=== PATIENT | male | born 1955 | race Caucasian/White ===

== ENCOUNTER 2019-03-06 06:20 | Emergency (ER) | payer OTHER ==
[2019-03-06 07:07] VITALS: BMI 23.8
--- NOTE | 2019-03-06 07:49 | PDOC ---
Attending Attestation - Resident Resident Name: Caitlyn Hudson - ED Attending Attestation I have performed the following: I have examined & evaluated the patient, The case was reviewed & discussed with the resident, I agree w/resident's findings & plan, Exceptions are as noted - HPI HPI: 03/06/19 07:53 63y M hx of copd, nstemi, upper lobe lung ca, etoh, bph, dm, htn, gerd presens from [facility] unw[facility]ed [facility]. Pt doesnt recall the fall itself, and thinks he syncopized. pt complaining of pain to his L ches, pt denies any headache, cp, sob, back pain, pt states he was recently at [facility] for a heat problem. but dnies any cp currently. pt denies any cough, fever/chills, n/v, diarrhea, melena, bpr. Physicla Exam GENERAL: The patient is awake, alert, and fully oriented, Nontoxic - in no acute distress. HEAD: Normocephalic, atraumatic. EYES: extraocular movements intact, sclera anicteric, conjunctiva clear. ENT: Normal voice, Moist mucous membranes. NECK: Normal range of motion, supple LUNGS: Breath sounds equal, clear to auscultation bilaterally. No wheezes, no rhonchi, no rales. HEART: Regular rate and rhythm, normal S1 and S2 without murmur, rub or gallop. ABDOMEN: Soft, bruising in the left lower quadrant, nontender, No guarding, no rebound. No CVA tenderness BACK: No focal midline tenderness in the cervical, thoracic or lumbar spine EXTREMITIES: Normal range of motion, no edema. Moving all fours extremities spontaneously and symmetrically NEUROLOGICAL: No facial assymetry, Normal speech, PSYCH: Normal mood, normal affect. SKIN: Warm, Dry, normal turgor, 63-year-old multiple medical problems presenting status post fall possible syncope Will obtain CT head, C-spine will obtain basic labs, EKG, troponin, chest x-ray - Physicial Exam PE: 03/08/19 07:53 see abobve - Medical Decision Making 03/06/19 14:04 Patient's labs were reviewed they are at baseline Patient does have a small pleural effusion on the right lung, the patient denies any respiratory complaints, Suspect this may be due to his malignancy. CT of the spine and x-rays noted for likely malignant lesions We will have the patient follow-up with PMD Heart Score/ECG Review - ECG Impressions Comment:: 03/06/19 15:28 Twelve-lead EKG was performed and reviewed by me. There is normal sinus rhythm with a normal rate. Rate of 79 T wave inversion in the inferior and anterior leads
--- NOTE | 2019-03-06 08:20 | PDOC ---
History of Present Illness - General Chief Complaint: Injury Stated Complaint: FALL Time Seen by Provider: 03/06/19 07:29 History Source: Patient - History of Present Illness Initial Comments: 03/06/19 08:14 63 yo M PMH of R Lung ca ( actively chemo, radiation), NSTEMI (s/p stent -2 weeks ago [facility] ), DM, GERD, psych Hx( hallucinations),Hx of polysubstance abuse presents to ED for fall and LOC. Pt states he fell this morning and lost consciousness. pt doesnt remember how he fell. pt endorses LLQ pain and R lumbar pain. he states its 10/10 throbbing and non radiating. laying down helps the pain and walking exacerbates the pain. Pt is poor historian. Contacted daughter for further history. she states he has been falling frequently. she states approx 2 weeks ago, he fell and was sent to [facility] where they found an NSTEMI -stent was placed. during that hospital course, he also required blood transfusions, also had renal and liver failure. 03/06/19 08:32 Past History - Past Medical History Allergies/Adverse Reactions: Allergies Allergy/AdvReac Type Severity Reaction Status Date / Time No Known Allergies Allergy Verified 03/06/19 12:55 COPD: Yes Diabetes: Yes Disorders: Yes Psychiatric Problems: Yes (depression) Lung CA: Yes - Immunization History Immunization Up to Date: Yes - Psycho Social/Smoking Cessation Hx Smoking History: Current some day smoker Have you smoked in the past 12 months: Yes Number of Cigarettes Smoked Daily: 5 Information on smoking cessation initiated: Yes Hx Alcohol Use: No Drug/Substance Use Hx: No Review of Systems - Review of Systems Able to Perform ROS?: Yes Constitutional: No: Chills, Fever, Weakness Respiratory: No: Shortness of Breath Cardiac (ROS): Yes: Syncope. No: Chest Pain ABD/GI: No: Abd. Pain w/ defecation, Blood Streaked Bowels, Diarrhea, Nausea, Rectal Bleeding, Vomiting : No: Dysuria, Hematuria Integumentary: Yes: Bruising Neurological: No: Weakness *Physical Exam - Vital Signs Last Vital Signs Temp Pulse Resp BP Pulse Ox 98.1 F 82 18 118/80 100 03/06/19 07:01 03/06/19 07:01 03/06/19 07:01 03/06/19 07:01 03/06/19 07:01 - Physical Exam General Appearance: Yes: Nourished, Appropriately Dressed. No: Apparent Distress HEENT: positive: Normal Voice Respiratory/Chest: positive: Decreased Breath Sounds, Crackles. negative: Accessory Muscle Use Cardiovascular: positive: Regular Rhythm, Regular Rate, S1, S2 Gastrointestinal/Abdominal: positive: Normal Bowel Sounds, Tender (RLQ), Soft Musculoskeletal: positive: Muscle Spasm (R lumbar ) Integumentary: positive: Normal Color, Dry, Warm Neurologic: positive: community health nurse II-XII NML intact, Fully Oriented ED Treatment Course - LABORATORY CBC & Chemistry Diagram: 03/06/19 08:00 03/06/19 08:00 Medical Decision Making - Medical Decision Making 03/06/19 08:43 63 yo M presenting with LLQ pain and R lumbar pain s/p fall -CT head, C-spine -EKG reviewed : NSR, inverted T waves III, aVF, V1-V5. pending cardiac profile -CBC reviewed, Hgb 9.4. will need baseline -CMP -UA negative 03/06/19 12:14 03/06/19 12:25 CT C spine: wedging of T1 vertebral body, likely pathologic. Correlation with bone scan is recommended to evaluate for other areas of bone metastasis. Pleural effusion in included right thoracic inlet with calcifications as well as mild pleural thickening and likely pleural effusion on the left. Moderately dense calcified plaques at the common carotid bifurcation, bilaterally 03/06/19 13:42 -FAST exam negative for free fluid in abdomen. dc home with onc f/u Discharge - Discharge Information Problems reviewed: Yes Clinical Impression/Diagnosis: Lung cancer metastatic to bone Condition: Stable Disposition: HOME - Admission No - Follow up/Referral Referrals: George Noel MD [Primary Care Provider] - - Patient Discharge Instructions Patient Printed Discharge Instructions: DI for Lung Cancer Additional Instructions: You came into the hospital for pain after a fall. We did a CT of your head and C-Spine. The CT shows that you have bone metastasis from your cancer in your cervical spine. We recommend you follow up with your oncologist regarding these findings. We did blood work which does not show an infection. Your cardiac number was not elevated. Please follow up with your oncologist regarding your lung cancer and this new spine metastasis. Please follow up with your primary medical physician regarding your symptoms. If you have any new, worsening, or concerning symptoms please return to the ED. - Post Discharge Activity
[2019-03-06 08:22] LABS: EOS % 1.3 % (0-4.5); HEMATOCRIT 27.7 % (35.4-49); HEMOGLOBIN 9.4 GM/dL (11.7-16.9); LYMPH % 17.9 % (8-40); MCH 33.5 pg (25.7-33.7); MEAN CELL VOLUME 98.4 fl (80-96); MEAN PLT VOLUME 8.9 fl (7.5-11.1); MONO % 11.5 % (3.8-10.2); NEUT % 68.3 % (42.8-82.8); PLATELET COUNT 264 K/MM3 (134-434); RBC 2.81 M/mm3 (4.00-5.60); RDW 17.8 % (11.9-15.9)
[2019-03-06 08:46] LABS: ALBUMIN 2.8 g/dl (3.4-5.0); BILIRUBIN,TOTAL 0.5 mg/dL (0.2-1); BLOOD UREA NITROGEN 20.2 mg/dL (7-18); CALCIUM 9.8 mg/dL (8.5-10.1); CREATININE 1.4 mg/dL (0.55-1.3); POTASSIUM 4.3 mmol/L (3.5-5.1); TOT PROT 7.4 g/dl (6.4-8.2)
[2019-03-06] MEDS ORDERED: ACETAMINOPHEN 325 MG TABLET (FP) PO ONE (09:07)
[2019-03-06 11:45] LABS: ANISOCYTOSIS 1+; MACROCYTOSIS 1+; PLATELET ESTIMATE NORMAL
[2019-03-06 12:12] LABS: URINE APPEARANCE CLEAR; URINE BILIRUBIN NEGATIVE (NEGATIVE); URINE COLOR YELLOW; URINE GLUCOSE (UA) NEGATIVE (NEGATIVE); URINE KETONE NEGATIVE (NEGATIVE); URINE LEUK ESTERASE NEGATIVE (NEGATIVE); URINE NITRITE NEGATIVE (NEGATIVE); URINE PROTEIN NEGATIVE (NEGATIVE); URINE UROBILINOGEN 0.2 mg/dL (0.2-1.0)
[2019-03-06] MEDS ORDERED: ACETAMINOPHEN 325 MG TABLET (FP) ONE (12:56)
[2019-03-06 15:48] VITALS: BP 109/81; PULSE 88; TEMP 98.4
--- NOTE | 2019-03-07 10:24 | EKG ---
Test Reason : Blood Pressure : / mmHG Vent. Rate : 079 BPM Atrial Rate : 079 BPM P-R Int : 152 ms QRS Dur : 092 ms QT Int : 388 ms P-R-T Axes : 012 017 005 degrees QTc Int : 444 ms NORMAL SINUS RHYTHM POSSIBLE INFERIOR INFARCT , AGE UNDETERMINED ANTERIOR INFARCT , AGE UNDETERMINED T WAVE ABNORMALITY, CONSIDER LATERAL ISCHEMIA ABNORMAL ECG NO PREVIOUS ECGS AVAILABLE Confirmed by JR SANDERS, DAIJA ([id number]) on 03/07/2019 10:24:09 AM Referred By: Confirmed By:DAIJA NORRIS MD
== END 2019-03-06 16:00 | disposition home or self-care (01) ==
LOC: JER 06:20
DX: C34.91 Malignant neoplasm of unspecified part of right bronchus or lung (principal); J90 Pleural effusion, not elsewhere classified; C79.51 Secondary malignant neoplasm of bone; I25.10 Atherosclerotic heart disease of native coronary artery without angina pectoris; I10 Essential (primary) hypertension; Z95.5 Presence of coronary angioplasty implant and graft; I25.2 Old myocardial infarction; E11.9 Type 2 diabetes mellitus without complications; K21.9 Gastro-esophageal reflux disease without esophagitis; F10.10 Alcohol abuse, uncomplicated; M62.830 Muscle spasm of back; W18.30XA Fall on same level, unspecified, initial encounter; Y93.89 Activity, other specified; Y92.098 Other place in other non-institutional residence as the place of occurrence of the external cause; Y99.8 Other external cause status; R29.6 Repeated falls; J44.9 Chronic obstructive pulmonary disease, unspecified; N40.0 Benign prostatic hyperplasia without lower urinary tract symptoms; F17.210 Nicotine dependence, cigarettes, uncomplicated
CPT/HCPCS: 36415; 70450-TC; 71045-TC-FY; 72125-TC; 76604; 76705-TC; 80053; 81003; 82550; 84484; 85025; 93005; 93010; 93308; 99283-25